=== PATIENT | male | born 2005 | race Hispanic/Latino ===

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

== ENCOUNTER 2024-01-28 15:30 | Emergency (ER) | payer OTHER, SELFPAY | END 2024-01-28 17:40 | disposition home or self-care (01) | LOC: CSHERS 15:30 | DX: S93.402A Sprain of unspecified ligament of left ankle, initial encounter (principal); V98.8XXA Other specified transport accidents, initial encounter ==